=== PATIENT | female | born 1965 | race Caucasian/White ===

== ENCOUNTER 2016-06-23 20:11 | Emergency (ER) | payer BC, OTHER ==
[~2016-06-23 20:11] MED LIST: ADVIL PO; CLARIT10 PO; CONSTULOSE PO; HYDROCHLOROT12.5 MG PO; LEVOTHYROXIN50 MCG PO; LINZESS 145 M145 MCG PO; LUVOX50 PO; MELA3 PO; NEUR100 PO; SEROQUEL25 PO; SEROQUEL50 MG PO; SUDOGEST60 MG PO; ZANTAC 150 PO; ZOCOR40 PO; ZOL100 PO
[2016-09-06] MEDS ORDERED: [UNRECOGNIZED DRUG - OTHER] PO (13:53)
[2016-09-06] MEDS ORDERED: CALCIUM CITRATE PO (13:53)
[2016-09-06] MEDS ORDERED: VITAMIN D31000 UNIT PO (14:00)
== END 2016-06-23 20:39 | disposition home or self-care (01) ==
LOC: ER 20:11
DX: S00.212A Abrasion of left eyelid and periocular area, initial encounter (principal); Z79.899 Other long term (current) drug therapy; W19.XXXA Unspecified fall, initial encounter
CPT/HCPCS: 99283; A9270-GY